=== PATIENT | male | born 1985 | race Two or more races ===

== ENCOUNTER 2017-05-15 13:32 | Emergency (ER) | payer SELFPAY ==
[2017-05-15 13:37] VITALS: BP 111/17
--- NOTE | 2017-05-15 14:00 | ER Document Report ---
HPI - HPI Patient complains to provider of: toothache Pain Level: 5 Context: 32 yo male c/o pain and swelling to left lower tooth x 3 days. no fever, + facial swelling Associated Symptoms: None Exacerbated by: Food Relieved by: Denies Similar symptoms previously: Yes Recently seen / treated by doctor: No - ROS Systems Reviewed and Negative: Yes All other systems reviewed and negative - DERM Skin Color: Normal Past Medical History - General Information source: Patient - Social History Smoking Status: Current Every Day Smoker Frequency of alcohol use: None Drug Abuse: None Lives with: Family Family History: Reviewed & Not Pertinent Pulmonary Medical History: Reports: Hx Asthma Renal/ Medical History: Denies: Hx Peritoneal Dialysis Vertical Provider Document - CONSTITUTIONAL Agree With Documented VS: Yes Exam Limitations: No Limitations - INFECTION CONTROL TRAVEL OUTSIDE OF THE [place] IN LAST 30 DAYS: No - HEENT HEENT: Atraumatic, PERRLA Mouth Diagram: 1 - pain, + gingival swelling. extensive decay Notes: + swelling to left lower jaw - NECK Neck: Supple - RESPIRATORY Respiratory: Breath Sounds Normal, No Respiratory Distress O2 Sat by Pulse Oximetry: 98 - CARDIOVASCULAR Cardiovascular: Regular Rate, Regular Rhythm - NEURO Level of Consciousness: Awake, Alert, Appropriate - DERM Integumentary: Warm, Dry Course - Re-evaluation Re-evalutation: 05/15/17 13:57 no s/s Ludwigs, peritonsillar abscess. no airway compromise. pt afebrile and nontoxic. stable for discharge home on oral antibiotics and follow up with dental - Vital Signs Vital signs: Temp Pulse Resp BP Pulse Ox 98.0 F 72 18 111/17 L 98 05/15/17 13:34 05/15/17 13:34 05/15/17 13:34 05/15/17 13:34 05/15/17 13:34 Discharge - Discharge Clinical Impression: Pain, dental Condition: Stable Disposition: HOME, SELF-CARE Instructions: Penicillin V K (OM), Toothache (OM), Oral Narcotic Medication ( OM) Additional Instructions: take medication as prescribed follow up with dental for further evaluation and treatment Prescriptions: Hydrocodone/Acetaminophen [Gilman 5-325 mg Tablet] 1 tab PO Q4H PRN #10 tablet PRN Reason: Penicillin V Potassium [Penicillin Vk 500 mg Tablet] 500 mg PO BID #20 tablet
== END 2017-05-15 14:03 | disposition home or self-care (01) ==
LOC: ER 13:32
DX: K02.9 Dental caries, unspecified (principal); K08.89 Other specified disorders of teeth and supporting structures; R22.0 Localized swelling, mass and lump, head; F17.200 Nicotine dependence, unspecified, uncomplicated; J45.909 Unspecified asthma, uncomplicated
CPT/HCPCS: 99282